=== PATIENT | male | born 1980 | race Caucasian/White ===

== ENCOUNTER 2019-07-16 20:30 | Emergency (ER) | payer MEDICAID ==
[~2019-07-16] VITALS: Ht 167.6 cm; Wt 81.0 kg
[2019-07-16] MEDS ORDERED: ONDANSETRON 4MG ODT PO ONE (21:45)
[2019-07-16] MEDS ORDERED: ACETAMINOPHEN 325MG TABLET PO ONE (21:45)
[2019-07-16 21:51] VITALS: BP 133/96
== END 2019-07-16 21:51 | disposition home or self-care (01) ==
LOC: ER 20:30
DX: S06.0X0A Concussion without loss of consciousness, initial encounter (principal); R03.0 Elevated blood-pressure reading, without diagnosis of hypertension; W22.8XXA Striking against or struck by other objects, initial encounter; Y93.01 Activity, walking, marching and hiking; Y92.018 Other place in single-family (private) house as the place of occurrence of the external cause; F17.210 Nicotine dependence, cigarettes, uncomplicated
CPT/HCPCS: 99283; Q0162

== ENCOUNTER 2019-12-25 21:12 | Emergency (ER) | payer MEDICAID ==
[~2019-12-25] VITALS: Ht 167.6 cm; Wt 78.0 kg
[2019-12-25] MEDS ORDERED: DIPHENHYDRAMINE 25MG CAPSULE PO ONE (22:30)
[2019-12-25] MEDS ORDERED: KETOROLAC 60MG/2ML VIAL IM ONE (22:30)
[2019-12-26 01:06] VITALS: BP 116/75
== END 2019-12-26 01:16 | disposition home or self-care (01) ==
LOC: ER 21:12
DX: S30.860A Insect bite (nonvenomous) of lower back and pelvis, initial encounter (principal); S20.362A Insect bite (nonvenomous) of left front wall of thorax, initial encounter; R03.0 Elevated blood-pressure reading, without diagnosis of hypertension; W57.XXXA Bitten or stung by nonvenomous insect and other nonvenomous arthropods, initial encounter; Y93.89 Activity, other specified; Y92.89 Other specified places as the place of occurrence of the external cause
CPT/HCPCS: 96372; 99283; J1885; Q0163; Z7610

== ENCOUNTER 2020-10-26 09:53 | Inpatient (IN) | payer MEDICAID ==
[~2020-10-26] VITALS: Ht 165.1 cm; Wt 82.1 kg
[2020-10-26] MEDS ORDERED: ACETAMINOPHEN 325MG TABLET PO STA (10:35)
[2020-10-26] MEDS ORDERED: DEXAMETHASONE 4MG TABLET PO ONE (10:45)
[2020-10-26 11:22] LABS: CHLORIDE 99 mEq/L (98-107)
[2020-10-26 11:26] LABS: BASOPHILS % 0.2 % (0.0-2.0); HEMATOCRIT. 45.3 % (42.0-52.0); HEMOGLOBIN. 15.3 g/dL (14.0-18.0); LYMPHOCYTES % 8.2 % (20.0-50.0); MEAN CORPUSCULAR HEMOGLOBIN 31.6 pg (28.0-32.0); MEAN CORPUSCULAR VOLUME 93.5 fL (80.0-94.0); MEAN PLATELET VOLUME 9.8 fl (7.4-10.4); MONOCYTES % 3.6 % (2.0-8.0); PLATELET 238 x1000/uL (130-400); RED BLOOD CELL COUNT 4.85 mill/uL (4.7-6.1)
[2020-10-26 11:28] LABS: BG BASE EXCESS 0.7 mmol/L (-2.0-2.0); BG CARBOXYHEMOGLOBIN 0.5 % (0.5-1.5); BG DEOXYHEMOGLOBIN 3.1 % (0.0-5.0); BG FRACTION INSPIRED OXYGEN 32; BG METHEMOGLOBIN 0.4 % (0.0-1.5); BG OXYGEN SATURATION 96.9 % (92.0-98.5); BG PH 7.489 (7.350-7.450); BG PO2 85.8 mmHg (75.0-100.0); BG SAMPLE SITE LEFT BRACHIAL; BG VENT MODE NASAL CANNULA
[2020-10-26] MEDS ORDERED: ONDANSETRON HCL 4MG/2ML INJ IV PRN (13:30)
[2020-10-26] MEDS ORDERED: CLONIDINE 0.1MG TABLET PO PRN (13:30)
[2020-10-26] MEDS ORDERED: MAGNESIUM/ALUMINUM HYDROXIDE/SIMETHICONE 30ML UDC PO PRN (13:30)
[2020-10-26] MEDS ORDERED: AZITHROMYCIN 500 MG in DEXT 5% WATER 250 ML IV SCH (14:00)
[2020-10-26] MEDS ORDERED: CEFTRIAXONE 1 G PREMIX 50 ML IV SCH (14:00)
[2020-10-26] MEDS: HYDROCODONE/ACETAMINOPHEN 5/325MG TABLET PO PRN (21:47)
[2020-10-26] MEDS: METOPROLOL TARTRATE 25MG TABLET PO SCH (22:54)
[2020-10-26] MEDS: ENOXAPARIN 80MG/0.8ML SYR SUBCUT SCH ×2 (22:55→23:00)
[2020-10-26 23:29] VITALS: BP 132/82
[2020-10-26] MEDS ORDERED: ACET-2708 PO (23:51)
[2020-10-27 00:19] VITALS: BP 118/79
[2020-10-27 04:00] VITALS: BP 120/85
[2020-10-27 06:39] LABS: BASOPHILS % 0.4 % (0.0-2.0); HEMATOCRIT. 44.2 % (42.0-52.0); LYMPHOCYTES % 10.1 % (20.0-50.0); MEAN CORPUSCULAR HEMOGLOBIN 31.6 pg (28.0-32.0); MEAN CORPUSCULAR VOLUME 93.1 fL (80.0-94.0); MEAN PLATELET VOLUME 9.5 fl (7.4-10.4); MONOCYTES % 6.3 % (2.0-8.0); NEUTROPHILS % 83.2 % (40.0-76.0); PLATELET 293 x1000/uL (130-400); RED BLOOD CELL COUNT 4.75 mill/uL (4.7-6.1); RED CELL DISTRIBUTION WIDTH 12.6 % (11.6-14.6)
[2020-10-27 07:07] LABS: INR 0.9; PROTHROMBIN TIME 9.9 sec (9.6-11.0)
[2020-10-27 07:13] LABS: CHLORIDE 101 mEq/L (98-107)
[2020-10-27 08:00] VITALS: BP 110/81
[2020-10-27] MEDS: ENOXAPARIN 80MG/0.8ML SYR SUBCUT SCH ×2 (08:37→20:41)
[2020-10-27] MEDS: GUAIFENESIN-DM 200MG-20MG/10ML UDC PO PRN ×2 (08:37→20:50)
[2020-10-27] MEDS: METOPROLOL TARTRATE 25MG TABLET PO SCH ×2 (08:38→20:41)
[2020-10-27] MEDS: DEXAMETHASONE 4MG/ML 1ML VIAL IV SCH (08:39)
[2020-10-27 12:11] VITALS: BP 121/84
[2020-10-27] MEDS: AZITHROMYCIN 500 MG in DEXT 5% WATER 250 ML IV SCH (13:06)
[2020-10-27] MEDS: CEFTRIAXONE 1,000 MG in DEXTROSE 5% WATER 50 ML IV SCH (13:06)
[2020-10-27 15:37] VITALS: BP 124/85
[2020-10-27 20:00] VITALS: BP 138/85
[2020-10-27] MEDS: HYDROCODONE/ACETAMINOPHEN 5/325MG TABLET PO PRN (20:50)
[2020-10-28] VITALS: BP 122/81
[2020-10-28 04:00] VITALS: BP 117/77
[2020-10-28] MEDS: GUAIFENESIN-DM 200MG-20MG/10ML UDC PO PRN (05:49)
[2020-10-28] MEDS: HYDROCODONE/ACETAMINOPHEN 5/325MG TABLET PO PRN (05:49)
[2020-10-28 08:00] VITALS: BP 116/83
[2020-10-28] MEDS: ENOXAPARIN 80MG/0.8ML SYR SUBCUT SCH ×2 (08:36→20:46)
[2020-10-28] MEDS: METOPROLOL TARTRATE 25MG TABLET PO SCH ×2 (08:36→20:46)
[2020-10-28] MEDS: DEXAMETHASONE 4MG/ML 1ML VIAL IV SCH (08:36)
[2020-10-28 12:00] VITALS: BP 117/74
[2020-10-28] MEDS: CEFTRIAXONE 1,000 MG in DEXTROSE 5% WATER 50 ML IV SCH (12:33)
[2020-10-28] MEDS: AZITHROMYCIN 500 MG in DEXT 5% WATER 250 ML IV SCH (13:18)
[2020-10-28 16:00] VITALS: BP 114/67
[2020-10-28 20:00] VITALS: BP 129/89
[2020-10-29] VITALS (9 sets, daily range): BP systolic 110–127; BP diastolic 74–85
[2020-10-29] MEDS: GUAIFENESIN-DM 200MG-20MG/10ML UDC PO PRN (09:03)
[2020-10-29] MEDS: METOPROLOL TARTRATE 25MG TABLET PO SCH ×2 (09:04→21:00)
[2020-10-29] MEDS: ENOXAPARIN 80MG/0.8ML SYR SUBCUT SCH ×2 (09:04→21:25)
[2020-10-29] MEDS: DEXAMETHASONE 4MG/ML 1ML VIAL IV SCH (09:07)
[2020-10-29] MEDS: CEFTRIAXONE 1,000 MG in DEXTROSE 5% WATER 50 ML IV SCH (13:31)
[2020-10-29] MEDS: AZITHROMYCIN 500 MG in DEXT 5% WATER 250 ML IV SCH (13:32)
[2020-10-30] VITALS: BP 130/91
[2020-10-30] MEDS: GUAIFENESIN-DM 200MG-20MG/10ML UDC PO PRN ×4 (03:53→17:09)
[2020-10-30 04:00] VITALS: BP 115/81
[2020-10-30 07:58] VITALS: BP 109/67
[2020-10-30] MEDS: ENOXAPARIN 80MG/0.8ML SYR SUBCUT SCH ×2 (08:49→20:40)
[2020-10-30] MEDS: METOPROLOL TARTRATE 25MG TABLET PO SCH ×2 (08:50→20:40)
[2020-10-30] MEDS: DEXAMETHASONE 4MG/ML 1ML VIAL IV SCH (08:50)
[2020-10-30 12:00] VITALS: BP 121/74
[2020-10-30] MEDS: AZITHROMYCIN 500 MG in DEXT 5% WATER 250 ML IV SCH (13:57)
[2020-10-30 16:00] VITALS: BP 104/69
[2020-10-30] MEDS: CEFTRIAXONE 1,000 MG in DEXTROSE 5% WATER 50 ML IV SCH (17:06)
[2020-10-30 20:00] VITALS: BP 126/80
[2020-10-31] VITALS: BP 124/77
[2020-10-31 04:00] VITALS: BP 120/84
[2020-10-31 08:00] VITALS: BP 102/63
[2020-10-31] MEDS: METOPROLOL TARTRATE 25MG TABLET PO SCH ×2 (08:38→20:35)
[2020-10-31] MEDS: GUAIFENESIN-DM 200MG-20MG/10ML UDC PO PRN ×3 (08:39→20:36)
[2020-10-31] MEDS: ENOXAPARIN 80MG/0.8ML SYR SUBCUT SCH ×2 (08:39→20:35)
[2020-10-31] MEDS ORDERED: DEXAMETHASONE 10 MG/ML VIAL IV SCH (09:00)
[2020-10-31 12:00] VITALS: BP 104/69
[2020-10-31 16:00] VITALS: BP 111/76
[2020-10-31 20:00] VITALS: BP 111/75
[2020-11-01] VITALS: BP 130/70
[2020-11-01] MEDS: ACETAMINOPHEN 325MG TABLET PO PRN ×2 (00:59→17:08)
[2020-11-01 04:00] VITALS: BP 112/72
[2020-11-01 08:00] VITALS: BP 111/76
[2020-11-01] MEDS: ENOXAPARIN 80MG/0.8ML SYR SUBCUT SCH ×2 (08:08→21:52)
[2020-11-01] MEDS: DEXAMETHASONE 4MG/ML 1ML VIAL IV SCH (08:09)
[2020-11-01] MEDS: GUAIFENESIN-DM 200MG-20MG/10ML UDC PO PRN ×2 (08:19→17:08)
[2020-11-01] MEDS: METOPROLOL TARTRATE 25MG TABLET PO SCH ×2 (08:19→21:00)
[2020-11-01 12:00] VITALS: BP 102/72
[2020-11-01 16:00] VITALS: BP 101/66
[2020-11-01 20:00] VITALS: BP 105/59
[2020-11-02] VITALS: BP 114/81
[2020-11-02 04:00] VITALS: BP 115/67
[2020-11-02 08:00] VITALS: BP 100/65
[2020-11-02] MEDS: METOPROLOL TARTRATE 25MG TABLET PO SCH ×2 (09:00→21:00)
[2020-11-02] MEDS: ENOXAPARIN 80MG/0.8ML SYR SUBCUT SCH ×2 (09:12→21:13)
[2020-11-02] MEDS: DEXAMETHASONE 4MG/ML 1ML VIAL IV SCH (09:13)
[2020-11-02 12:00] VITALS: BP 106/71
[2020-11-02 16:00] VITALS: BP 104/83
[2020-11-02] MEDS: GUAIFENESIN-DM 200MG-20MG/10ML UDC PO PRN (19:42)
[2020-11-02 20:00] VITALS: BP 109/74
[2020-11-03] VITALS: BP 117/84
[2020-11-03 04:00] VITALS: BP 112/73
[2020-11-03 08:00] VITALS: BP 104/71
[2020-11-03] MEDS: ENOXAPARIN 80MG/0.8ML SYR SUBCUT SCH ×2 (09:00→21:42)
[2020-11-03] MEDS: METOPROLOL TARTRATE 25MG TABLET PO SCH ×2 (09:00→21:41)
[2020-11-03] MEDS: DEXAMETHASONE 4MG/ML 1ML VIAL IV SCH (09:00)
[2020-11-03 12:00] VITALS: BP 102/69
[2020-11-03 16:00] VITALS: BP 108/73
[2020-11-03 20:00] VITALS: BP 110/76
[2020-11-04] VITALS: BP 115/77
[2020-11-04 04:00] VITALS: BP 110/76
[2020-11-04 07:37] LABS: CHLORIDE 105 mEq/L (98-107)
[2020-11-04 07:39] LABS: BASOPHILS % 0.3 % (0.0-2.0); EOSINOPHILS % 0.2 % (0.0-5.0); HEMATOCRIT. 45.7 % (42.0-52.0); HEMOGLOBIN. 15.7 g/dL (14.0-18.0); LYMPHOCYTES % 17.6 % (20.0-50.0); MEAN CORPUSCULAR HEMOGLOBIN 32.1 pg (28.0-32.0); MEAN CORPUSCULAR VOLUME 93.1 fL (80.0-94.0); MEAN PLATELET VOLUME 8.4 fl (7.4-10.4); MONOCYTES % 8.9 % (2.0-8.0); PLATELET 530 x1000/uL (130-400); RED CELL DISTRIBUTION WIDTH 12.7 % (11.6-14.6)
[2020-11-04 08:00] VITALS: BP 98/61
[2020-11-04] MEDS: GUAIFENESIN-DM 200MG-20MG/10ML UDC PO PRN ×2 (08:10→15:23)
[2020-11-04] MEDS: DEXAMETHASONE 4MG/ML 1ML VIAL IV SCH (08:10)
[2020-11-04] MEDS: ENOXAPARIN 80MG/0.8ML SYR SUBCUT SCH ×2 (08:10→21:50)
[2020-11-04] MEDS: METOPROLOL TARTRATE 25MG TABLET PO SCH (08:11)
[2020-11-04 12:00] VITALS: BP_SYST 107; BP_SYST 96; BP_DIAS 61; BP_DIAS 73
[2020-11-04 16:00] VITALS: BP 107/73
[2020-11-04 20:00] VITALS: BP 95/59
[2020-11-05] VITALS (7 sets, daily range): BP systolic 87–107; BP diastolic 60–84
[2020-11-05] MEDS: METOPROLOL TARTRATE 25MG TABLET PO SCH ×2 (09:00→21:00)
[2020-11-05] MEDS: ENOXAPARIN 80MG/0.8ML SYR SUBCUT SCH ×2 (10:10→21:15)
[2020-11-05] MEDS: DEXAMETHASONE 4MG/ML 1ML VIAL IV SCH (10:10)
[2020-11-05] MEDS: GUAIFENESIN-DM 200MG-20MG/10ML UDC PO PRN ×2 (18:47→23:30)
[2020-11-06] VITALS: BP 99/66
[2020-11-06 04:00] VITALS: BP 106/73
[2020-11-06 08:00] VITALS: BP 106/68
[2020-11-06] MEDS: METOPROLOL TARTRATE 25MG TABLET PO SCH ×2 (09:00→21:39)
[2020-11-06] MEDS: GUAIFENESIN-DM 200MG-20MG/10ML UDC PO PRN (10:08)
[2020-11-06] MEDS: DEXAMETHASONE 4MG/ML 1ML VIAL IV SCH (10:08)
[2020-11-06] MEDS: ENOXAPARIN 80MG/0.8ML SYR SUBCUT SCH ×2 (10:09→21:39)
[2020-11-06 12:00] VITALS: BP 99/63
[2020-11-06 16:00] VITALS: BP 105/71
[2020-11-06 20:00] VITALS: BP 115/80
[2020-11-07] VITALS: BP 109/76
[2020-11-07 04:00] VITALS: BP 104/70
[2020-11-07 08:00] VITALS: BP 104/72
[2020-11-07] MEDS: METOPROLOL TARTRATE 25MG TABLET PO SCH (09:00)
[2020-11-07] MEDS: GUAIFENESIN-DM 200MG-20MG/10ML UDC PO PRN (09:53)
[2020-11-07] MEDS: ENOXAPARIN 80MG/0.8ML SYR SUBCUT SCH (09:53)
[2020-11-07] MEDS: DEXAMETHASONE 4MG/ML 1ML VIAL IV SCH (09:53)
[2020-11-07 12:00] VITALS: BP 98/67
[2020-11-07 12:27] VITALS: BP 111/63
== END 2020-11-07 13:30 | disposition home or self-care (01) | DRG 720 ==
LOC: ER 09:53 → 7EST 12:35 → EDBEDREQ 12:37 → ENRESERV 20:39 → 7EST 10-31 16:20 → 7WST 10-31 18:53
PROVIDERS: ADMIT Hospitalist; ATTEND Hospitalist
PROC: XW13325 Transfusion of Convalescent Plasma (Nonautologous) into Peripheral Vein, Percutaneous Approach, New Technology Group 5 (ICD-10-PCS; principal; 2020-10-28)
PROC: 30233M1 Transfusion of Nonautologous Plasma Cryoprecipitate into Peripheral Vein, Percutaneous Approach (ICD-10-PCS; 2020-10-29)
DX: A41.89 Other specified sepsis (principal); U07.1 COVID-19; E44.0 Moderate protein-calorie malnutrition; J96.01 Acute respiratory failure with hypoxia; J12.89 Other viral pneumonia; I10 Essential (primary) hypertension; R74.01 Elevation of levels of liver transaminase levels; Z68.30 Body mass index [BMI] 30.0-30.9, adult
CPT/HCPCS: 36415; 36600; 71045; 80048; 80053; 82375; 82805; 83880; 84484; 85025; 86850; 86900; 86927; 93005; 99285; C9803; J0456; J0696; J1100; J1650; J2405; J7040; J7060; J8540; P9017; U0003

== ENCOUNTER 2022-01-31 10:19 | Emergency (ER) | payer MEDICAID ==
[~2022-01-31] VITALS: Ht 167.6 cm; Wt 79.0 kg
[~2022-01-31 10:19] MED LIST: ACET-2708 PO
[2022-01-31] MEDS ORDERED: IBUPROFEN 600MG TABLET PO STA (11:13)
[2022-01-31 12:15] VITALS: BP 141/63
== END 2022-01-31 12:16 | disposition home or self-care (01) ==
LOC: ER 10:19
DX: M54.89 Other dorsalgia (principal); R51.9 Headache, unspecified
CPT/HCPCS: 71045; 99283

== ENCOUNTER 2022-03-15 20:50 | Emergency (ER) | payer MEDICAID ==
[~2022-03-15] VITALS: Ht 175.3 cm; Wt 76.7 kg
[2022-03-15] MEDS ORDERED: CYCL10TA7 MT (22:16)
[2022-03-15] MEDS ORDERED: IBUP-2029 MT (22:16)
[2022-03-15 22:42] VITALS: BP 131/88
== END 2022-03-15 21:57 | disposition left against medical advice (07) ==
LOC: ER 20:50
DX: Z53.21 Procedure and treatment not carried out due to patient leaving prior to being seen by health care provider (principal); R51.9 Headache, unspecified